=== PATIENT | male | born 1960 | race Caucasian/White ===

== ENCOUNTER 2017-06-03 14:11 | Emergency (ER) | payer OTHER ==
[~2017-06-03] VITALS: Ht 154.9 cm; Wt 70.5 kg
[2017-06-03 14:27] VITALS: BP 159/87
[2017-06-03] MEDS ORDERED: AMLO2.5T PO (14:33)
[2017-06-03] MEDS ORDERED: INSU100C14 SQ (14:33)
[2017-06-03] MEDS ORDERED: LOSA25TA21 PO (14:33)
[2017-06-03 14:38] LABS: GLUCOSE,POINT OF CARE 185 MG/DL (70-110)
== END 2017-06-03 15:34 | disposition home or self-care (01) ==
LOC: EMS 14:18
DX: H11.31 Conjunctival hemorrhage, right eye (principal); I10 Essential (primary) hypertension; E11.9 Type 2 diabetes mellitus without complications; Z79.4 Long term (current) use of insulin
CPT/HCPCS: 82962; 99282